=== PATIENT | female | born 1960 | race Caucasian/White ===

== ENCOUNTER 2018-08-31 22:30 | Emergency (ER) | payer BC, OTHER ==
[~2018-08-31] VITALS: Ht 157.5 cm; Wt 62.1 kg
--- NOTE | ~2018-08-31 | EKG ---
[address] [place] [address] ELECTROCARDIOGRAM REPORT Name: ROD KENNEDY Room #: DEP [facility]#: [id number] Admission: 08/31/18 Attend Phys: Discharge: 09/01/18 Date of : 62 Report #: [id number] THIS REPORT FOR: //name// [facility] ED Test Date: 2018-08-31 Test Time: 23:21:17 Pat Name: ROD KENNEDY Department: Room: Gender: F Medical Pathologist: : 1960 Requested By: Arnaldo Maurice Order Number: [id number] MD: Eliazar Baum Measurements Intervals Rowdy Rate: 65 P: 56 NV: 128 QRS: 64 QRSD: 115 T: 56 QT: 432 QTc: 450 Interpretive Statements Sinus rhythm No significant abnormality No previous ECG available for comparison Electronically Signed On 09-01-2018 8:50:37 CDT by Eliazar Baum [email or web address] <ELECTRONICALLY SIGNED> By: Eliazar Baum MD, [facility] 09/01/18 0850 [id number] Eliazar Baum MD, FACC /EPI
[2018-08-31 22:56] LABS: URINE BILIRUBIN NEGATIVE (Negative); URINE BLOOD NEGATIVE (Negative); URINE CLARITY CLEAR; URINE COLOR YELLOW; URINE GLUCOSE-RANDOM* NEGATIVE (Negative); URINE KETONES NEGATIVE (Negative); URINE LEUKOCYTES-REFLEX NEGATIVE (Negative); URINE NITRITE-REFLEX NEGATIVE (Negative); URINE PROTEIN (DIPSTICK) NEGATIVE (Negative); URINE SPECIFIC GRAVITY <= 1.005 (1.005-1.035); URINE UROBILINOGEN 0.2 E.U./dl (0.2-1.0)
[2018-08-31 23:26] LABS: ABSOLUTE NEUTROPHILS 11.8 thou/uL (1.4-8.2); EOSINOPHILS 2.7 % (0.0-3.0); HEMATOCRIT 45.3 % (37.0-47.0); LYMPHOCYTES 14.9 % (24.0-44.0); MCH 31.7 pg (26.0-34.0); MCHC 35.3 g/dL (28.0-37.0); MONOCYTES 7.4 % (1.0-8.0); PLATELET COUNT 367 thou/uL (150-400); RBC 5.03 mil/uL (4.20-5.00); WBC 15.9 thou/uL (4.0-11.0)
[2018-08-31 23:27] LABS: ANION GAP 8 mmol/L (7-16); BUN 14 mg/dL (7-18); CALCIUM 9.2 mg/dL (8.5-10.1); CHLORIDE 99 mmol/L (98-107); CO2 26 mmol/L (21-32); CREATININE 0.9 mg/dL (0.6-1.0); GLUCOSE 195 mg/dL (74-106); POTASSIUM 4.1 mmol/L (3.5-5.1); SODIUM 133 mmol/L (136-145)
[2018-08-31 23:36] LABS: ALBUMIN 3.2 g/dL (3.4-5.0); MAGNESIUM 1.9 mg/dL (1.8-2.4); SGOT 16 U/L (15-37); SGPT 32 U/L (30-65); TOTAL BILIRUBIN 0.5 mg/dL (<0.1-1.0); TOTAL PROTEIN 7.4 g/dL (6.4-8.2); TROPONIN-I <0.06 ng/mL (<0.06)
[2018-08-31] MEDS ORDERED: AUGMENTIN 500-1 EACH PO (23:43)
[2018-08-31] MEDS ORDERED: PREDNISONE 20 M20 MG PO (23:43)
[2018-08-31] MEDS ORDERED: VENTOLIN HFA 1818 GM INH (23:43)
[2018-08-31] MEDS ORDERED: TESSALON PERLE100 MG PO (23:45)
[2018-09-01 00:42] VITALS: BP 135/93
== END 2018-09-01 00:44 | disposition home or self-care (01) ==
LOC: ER 22:30
PROVIDERS: Emergency Medicine
DX: J20.9 Acute bronchitis, unspecified (principal); J44.0 Chronic obstructive pulmonary disease with (acute) lower respiratory infection; E78.5 Hyperlipidemia, unspecified; E11.9 Type 2 diabetes mellitus without complications; F17.210 Nicotine dependence, cigarettes, uncomplicated